=== PATIENT | male | born 1990 | race African-American/Black ===

== ENCOUNTER 2021-11-21 19:57 | Emergency (ER) | payer OTHER ==
[2021-11-21 20:12] VITALS: BP 155/89
--- NOTE | 2021-11-21 21:21 | XRAY Report ---
PROCEDURE: Ankle 3 View LT INDICATIONS: Trauma TECHNIQUE: 3 views of the ankle were acquired. COMPARISON: None FINDINGS: Bones: Cortical irregularity present at the posterior malleolus. No other potential acute fracture vi sualized. Ankle mortise is normally aligned. No suspicious bony lesions. Soft tissues: No definite tibiotalar joint effusion. IMPRESSION: Cortical irregularity is present at the posterior malleolus, raising the possibility of a minimally d isplaced acute fracture however sequela of prior injury or artifact related to projection are also po ssible. Correlation with point tenderness might be helpful. Follow-up radiographs and/or CT can be ob tained as clinically indicated. Reviewed by: Nelson Mendez MD on 11/21/2021 9:20 PM PDT Approved by: Nelson Mendez MD on 11/21/2021 9:20 PM PDT Station ID: [id number]
--- NOTE | 2021-11-21 21:54 | ED Physician Documentation ---
PD HPI LOWER EXT INJURY - Stated complaint Stated Complaint: ANKLE INJ - Chief complaint Chief Complaint: Trauma Ext - History obtained from History obtained from: Patient - History of Present Illness PD HPI LOW EXT INJURY LOCATION: Left, Ankle Type of injury: Fall, Twist Where injury occurred: [place] Pain level max: 5 Pain level now: 5 Improved by: Rest, Ice, Immobilization Associated symptoms: Swelling. No: Numbness, Tingling - Additional information Additional information: Patient is a 31-year-old male who was playing football today when he twisted his left ankle. Increased pain with walking. The pain is mainly on the dorsum of the foot/anterior aspect of the ankle. Feels similar to prior ankle sprains. Worse with walking, better with rest. No numbness or tingling. No swelling Review of Systems Constitutional: denies: Fever, Chills Musculoskeletal: denies: Neck pain, Back pain Neurologic: denies: Head injury, LOC PD PAST MEDICAL HISTORY - Past Medical History Past Medical History: No - Past Surgical History Past Surgical History: No - Present Medications Home Medications: Ambulatory Orders Medication Instructions Recorded Confirmed No Known Home Medications 11/21/21 11/21/21 - Allergies Allergies/Adverse Reactions: Allergies Allergy/AdvReac Type Severity Reaction Status Date / Time No Known Drug Allergies Allergy Verified 11/21/21 20:12 - Living Situation Living Situation: reports: With family Living Arrangement: reports: At home - Social History Does the pt have substance abuse?: No PD ED PE NORMAL - Vitals Vital signs reviewed: Yes - General General: Alert and oriented X 3, No acute distress - HEENT HEENT: Moist mucous membranes - Derm Derm: Warm and dry - Extremities Extremities: Other (Mild tenderness to palpation over the lateral malleolus as w ell as the dorsum of the foot. There is no pain or swelling on the dorsum of the ankle or the posterior malleolus. Neurovascularly intact. No swelling over the lateral malleolus or the foot.) - Neuro Neuro: Alert and oriented X 3 Results - Vitals Vitals: Vital Signs - 24 hr 11/21/21 20:10 Temperature 36.6 C Heart Rate 70 Respiratory 16 Rate Blood Pressure 155/89 H O2 Saturation 100 Oxygen O2 Source Room air - Rads (name of study) Left foot x-ray Radiology: Final report received, EMP read contemporaneously, See rad report Left ankle x-ray Radiology: Final report received, EMP read contemporaneously, See rad report PD MEDICAL DECISION MAKING - ED course Complexity details: reviewed results, re-evaluated patient, considered differential, d/w patient ED course: No acute findings on x-ray of the left foot. At the left ankle x-ray has a potential cortical irregularity on the posterior malleolus. Possibility of minimally displaced fracture, could be sequelae of prior injury or artifact related to projection. I discussed this with the patient. He is not tender anywhere in this area and there is no swelling. He does not have pain in that area with ambulation. Suspect old injury versus artifact. We discussed a CT scan, patient declines this at this time. Will place on crutches, air splint and have him follow-up with his doctor. Patient counseled regarding signs and symptoms for which I believe and urgent re-evaluation would be necessary. Patient with good understanding of and agreement to plan and is comfortable going home at this time This document was made in part using voice recognition software. While efforts are made to proofread this document, sound alike and grammatical errors may occur. Departure - Departure Disposition: 01 Home, Self Care Clinical Impression: Left ankle sprain Qualifiers: Encounter type: initial encounter Involved ligament of ankle: unspecified ligament Qualified Code(s): S93.402A - Sprain of unspecified ligament of left ankle, initial encounter Condition: Good Instructions: ED Sprain Ankle Follow-Up: your,doctor in 1 week [Other] Comments: Please follow-up with your doctor for further care. Your x-rays did not show any acute abnormality today. There is a question of an irregularity on your posterior malleolus on the back of your ankle. You are not tender at the site and do not have swelling at the site. Suspect that this is an old injury. We did discuss a CT scan, but you have declined this tonight. I think this is reasonable. If you are still having pain at the end of the week, your doctor can isabel-ray the area. Or a CT scan can be performed at that time. Please utilize the crutches and the brace at home. Discharge Date/Time: 11/21/21 22:03
--- NOTE | 2021-11-21 22:01 | XRAY Report ---
PROCEDURE: Foot 3 View LT INDICATIONS: foot twist, dorsum pain TECHNIQUE: 3 views of the foot were acquired. COMPARISON: Concurrent study of the ankle. FINDINGS: Bones: No fractures or dislocations. There is prominent osteophytosis of the first metatarsal head laterally. No suspicious bony lesions. Soft tissues: No tibiotalar joint effusion. Achilles tendon appears normal. IMPRESSION: 1. No fracture or dislocation. Reviewed by: Jostin Mahajan MD on 11/21/2021 9:59 PM PDT Approved by: Jostin Mahajan MD on 11/21/2021 9:59 PM PDT Station ID: [id number]
== END 2021-11-21 22:03 | disposition home or self-care (01) ==
LOC: ED 19:57
DX: S93.402A Sprain of unspecified ligament of left ankle, initial encounter (principal); X50.1XXA Overexertion from prolonged static or awkward postures, initial encounter; Y93.61 Activity, american tackle football
CPT/HCPCS: 99282; 99283